=== PATIENT | female | born 1980 | race Caucasian/White ===

== ENCOUNTER 2019-09-11 21:23 | Emergency (ER) | payer SELFPAY ==
[~2019-09-11] VITALS: Ht 182.9 cm; Wt 138.0 kg
--- NOTE | 2019-09-11 21:57 | PHYS DOC ---
Past Medical History Past Medical History: Depression Additional Past Medical Histor: POLYCYSTIC OVARIAN SYNDROME, KNEE INJURY WHEN SHE WAS A KID PER PT REPORT. Past Surgical History: No Surgical History Smoking Status: Never Smoker Alcohol Use: Occasionally General Adult EDM: Chief Complaint: KNEE INJURY HPI: HPI: Patient is a 38 year old female who presents with chronic right knee pain. Patient states that she works at [employer] and about a week ago she had to do a lot of stairs and since then she has had pain in the knee and states she feels a clicking feeling every 5-6 steps. She states that she has had ligament tears in that knee before. She states she has not seen her orthopedic doctor in years. She states she is been using ice, elevation and ibuprofen with that not getting better. She denies any numbness or tingling, coolness of the extremity, or color change of the extremity. Review of Systems: Review of Systems: Musculoskeletal: Denies back pain. Right knee joint pain. [] Heart Score: Risk Factors: Risk Factors: DM, Current or recent (<one month) smoker, HTN, HLP, family history of CAD, obesity. Risk Scores: Score 0 - 3: 2.5% MACE over next 6 weeks - Discharge Home Score 4 - 6: 20.3% MACE over next 6 weeks - Admit for Clinical Observation Score 7 - 10: 72.7% MACE over next 6 weeks - Early Invasive Strategies Physical Exam: PE: Constitutional: Well developed, well nourished, no acute distress, non-toxic appearance. [] HENT: Normocephalic, atraumatic, bilateral external ears normal, oropharynx moist, no oral exudates, nose normal. [] Eyes: PERRLA, EOMI, conjunctiva normal, no discharge. [] Neck: Normal range of motion, no tenderness, supple, no stridor. [] Cardiovascular:Heart rate regular rhythm, no murmur [] Lungs & Thorax: Bilateral breath sounds clear to auscultation [] Abdomen: Bowel sounds normal, soft, no tenderness, no masses, no pulsatile masses. [] Skin: Warm, dry, no erythema, no rash. [] Back: No tenderness, no CVA tenderness. [] Extremities: No tenderness, no cyanosis, no clubbing, ROM intact, no edema. [] Neurologic: Alert and oriented X 3, normal motor function, normal sensory function, no focal deficits noted. [] Psychologic: Affect normal, judgement normal, mood normal. Normal physical exam [] Current Patient Data: Vital Signs: Vital Signs Date Time Temp Pulse Resp B/P (MAP) Pulse Ox O2 Delivery O2 Flow Rate FiO2 09/11/19 21:34 97.9 70 16 147/65 (92) 96 Room Air 97.9 EKG: EKG: [] Radiology/Procedures: Radiology/Procedures: [] Impression: [facility] [address] [place] [address] IMAGING REPORT Signed PATIENT: PANCHITO FELIX ACCOUNT: [id number] : 1980 LOCATION: ER AGE: 38 SEX: F EXAM STATUS: REG ER ORD. PHYSICIAN: NESSA MERCADO APRN REASON: pain, clicking PROCEDURE: KNEE RIGHT 4V PROCEDURE: KNEE RIGHT 4V STUDY DATE: 09/11/2019 CLINICAL INDICATION / HISTORY: Reason: pain, clicking / Spl. Instructions: / History: . TECHNIQUE: AP, lateral, and tunnel views of the right knee. COMPARISON: None FINDINGS: The osseous structures are intact. The articular surfaces show minimal osteophytic spurring at the superior and inferior aspects of the patella and to a lesser extent in the medial lateral compartments as well.. The joint space is maintained. No intra-articular loose bodies. The alignment is within normal limits. The soft tissues are unremarkable. No obvious joint effusion. No radio-opaque foreign bodies are identified. IMPRESSION: Mild tricompartmental degenerative changes in the right knee with no fracture, malalignment or joint effusion noted. Electronically signed by: Karl Rayo MD (09/11/2019 10:26 PM) [facility] [place] DICTATED and SIGNED BY: KARL RAYO MD DATE: 09/11/19 1137 Course & Med Decision Making: Course & Med Decision Making Pertinent Labs and Imaging studies reviewed. (See chart for details) Skin pink warm and dry. Alert and oriented. Ambulatory with a steady gait. Patient can put pressure on the extremity but this does cause her more pain. She has full range of motion of the extremity but with bending the knee it is more painful. She says generalized the whole knee is hurting. No swelling or redness of the knee. No tenderness with palpation. No bruising. No joint swelling. Patient denies a new injury. [] Brianna Disclaimer: Brianna Disclaimer: This electronic medical record was generated, in whole or in part, using a voice recognition dictation system. Departure Departure Impression: Primary Impression: Right knee pain Qualified Codes: M25.561 - Pain in right knee Additional Impression: Arthritis Disposition: HOME, SELF-CARE Condition: STABLE Referrals: SHEILA BAR MD Patient Instructions: Arthritis, Degenerative-Brief, Knee Pain, [id number] Additional Instructions: Follow-up with orthopedic doctor. Can use the knee immobilizer when you are up and moving and you can take it off when you are sitting or going to bed. Contin ue using ice or heat to help with pain. Rest the knee as much as possible. Take medication with food. Scripts Hydrocodone/Apap 5-325 (NORCO 5-325 TABLET) 1 Each Tablet 1 TAB PO PRN Q6HRS PRN for PAIN, #8 TAB 0 Refills Prov: NESSA MERCADO APRN 09/11/19 NESSA MERCADO APRN September 11, 2019 21:56
[2019-09-11] MEDS ORDERED: HYDR-3164 PO (22:28)
--- NOTE | 2019-09-11 22:29 | RAD ---
PROCEDURE: KNEE RIGHT 4V STUDY DATE: 09/11/2019 CLINICAL INDICATION / HISTORY: Reason: pain, clicking / Spl. Instructions: / History: . TECHNIQUE: AP, lateral, and tunnel views of the right knee. COMPARISON: None FINDINGS: The osseous structures are intact. The articular surfaces show minimal osteophytic spurring at the superior and inferior aspects of the patella and to a lesser extent in the medial lateral compartments as well.. The joint space is maintained. No intra-articular loose bodies. The alignment is within normal limits. The soft tissues are unremarkable. No obvious joint effusion. No radio-opaque foreign bodies are identified. IMPRESSION: Mild tricompartmental degenerative changes in the right knee with no fracture, malalignment or joint effusion noted. Electronically signed by: Megan Rayo MD (09/11/2019 10:26 PM) [facility] [place]
[2019-09-11 22:46] VITALS: BP 115/78
== END 2019-09-11 22:46 | disposition home or self-care (01) ==
LOC: ER 21:23
DX: M17.11 Unilateral primary osteoarthritis, right knee (principal); M25.561 Pain in right knee; F32.9 Major depressive disorder, single episode, unspecified; Z98.890 Other specified postprocedural states
CPT/HCPCS: 73564; 99283